=== PATIENT | female | born 1970 | race Hispanic/Latino ===

== ENCOUNTER 2019-03-22 21:36 | Inpatient (IN) | payer BC ==
[2019-03-22] MEDS ORDERED: MORPHINE 4 MG/ML SYR ONE (22:27)
[2019-03-22] MEDS ORDERED: NA CHLORIDE 0.9% 1,000 ML ONE (22:27)
[2019-03-22] MEDS ORDERED: ONDANSETRON 4 MG/2 ML VIAL ONE (22:27)
[2019-03-22] MEDS ORDERED: FAMOTIDINE 20 MG/2 ML VIAL IV ONE (22:27)
[2019-03-22 22:34] LABS: Urine Blood 2+ (NEG); Urine Glucose NEGATIVE (NEG); Urine Protein NEGATIVE (NEG); Urine pH 6.5 (5.0-7.0)
[2019-03-22 22:39] LABS: Absolute Lymphocytes (CBC) 2.5 K/uL (0.7-4.9); Basophils % 0.8 % (0-1.3); Eosinophils % 0.5 % (0-4.4); Hematocrit 40.5 % (36.0-45.0); Lymphocytes % 12.6 % (15.3-44.8); MPV 8.6 fL (7.6-11.3); RBC Red Blood Cell Count 4.78 M/uL (3.86-4.86)
[2019-03-22] MEDS ORDERED: KETOROLAC 30 MG/ML INJ ONE (22:59)
[2019-03-22 23:00] LABS: ALT/SGPT 34 U/L (12-78); AST/SGOT 28 U/L (15-37); Albumin 3.7 g/dL (3.4-5.0); Alkaline Phosphatase 88 U/L (45-117); BUN Blood Urea Nitrogen 14 mg/dL (7-18); Bicarbonate 25 mmol/L (21-32); Bilirubin Direct < 0.1 mg/dL (0-0.2); Bilirubin Total 0.1 mg/dL (0.2-1.0); Glucose Level 130 mg/dL (74-106); Lipase 127 U/L (73-393); Potassium 4.1 mmol/L (3.5-5.1); Protein, Total 7.3 g/dL (6.4-8.2); Sodium Level 137 mmol/L (136-145)
--- NOTE | 2019-03-23 00:28 | ER ---
Nurse's Notes [facility] Name: Miranda New Age: 48 yrs Sex: Female : 1970 Arrival Date: 03/22/2019 Time: 21:43 Bed 8 Private MD: Diagnosis: Cholecystitis Presentation: 03/22 22:01 Presenting complaint: Patient states: Pt reports right upper quadrant abdominal pain ea that wraps around to back. Pt reports she had an ultrasound done in July of last year in [place] and it showed calculi. Transition of care: patient was not received from another setting of care. Onset of symptoms was March 22, 2019. Risk Assessment: Do you want to hurt yourself or someone else? Patient reports no desire to harm self or others. Initial Sepsis Screen: Does the patient meet any 2 criteria? No. Patient's initial sepsis screen is negative. Does the patient have a suspected source of infection? No. Patient's initial sepsis screen is negative. Care prior to arrival: None. 22:01 Method Of Arrival: Ambulatory ea 22:01 Acuity: SHYLA 3 ea Triage Assessment: 22:07 General: Appears uncomfortable, Behavior is restless. Pain: Complains of pain in ea posterior aspect of right lateral abdomen, anterior aspect of right lateral abdomen and right upper quadrant. COO: 22:04 LMP N/A - Hysterectomy ea Historical: - Allergies: 22:07 No Known Allergies; ea - Home Meds: 22:07 lisinopril 20 mg Oral tab 1 tab once daily [Active]; ea - PMHx: 22:07 Hypertension; ea - PSHx: 22:07 Hysterectomy; ea - Immunization history:: Adult Immunizations up to date. - Social history:: Smoking status: Patient/guardian denies using tobacco. - Ebola Screening: : No symptoms or risks identified at this time. Screenin:07 Abuse screen: Denies threats or abuse. Nutritional screening: No deficits noted. ea Tuberculosis screening: No symptoms or risk factors identified. Fall Risk None identified. Assessment: 22:05 General: Appears uncomfortable, Behavior is restless. Pain: Complains of pain in right ea upper quadrant and anterior aspect of right lateral abdomen and posterior aspect of right lateral abdomen. Neuro: Level of Consciousness is awake, alert, obeys commands, Oriented to person, place, time. Cardiovascular: Patient's skin is warm and dry. Respiratory: Airway is patent Respiratory effort is even, unlabored, Respiratory pattern is regular, symmetrical. GI: Reports upper abdominal pain. Derm: Skin is pink, warm \T\ dry. 23:30 Reassessment: Patient and/or family updated on plan of care and expected duration. Pain ea level reassessed. Patient is alert, oriented x 3, equal unlabored respirations, skin warm/dry/pink. Patient states symptoms have improved. 03/23 00:50 Reassessment: Patient and/or family updated on plan of care and expected duration. Pain ea level reassessed. Patient is alert, oriented x 3, equal unlabored respirations, skin warm/dry/pink. 02:30 Reassessment: Report called to Oksana ARROYO on fourth floor. ea Vital Signs: 03/22 22:04 BP 178 / 104; Pulse 72; Resp 18; Temp 98.1; Pulse Ox 98% on R/A; Weight 69.4 kg; Height ea 5 ft. 6 in. (167.64 cm); Pain 9/10; 22:40 BP 155 / 87; Pulse 75; Resp 16; Temp 98; Pulse Ox 100% on R/A; ea 23:00 BP 143 / 84; Pulse 59; Resp 15; Pulse Ox 100% ; rv 03/23 00:00 BP 128 / 79; Pulse 68; Resp 16; Pulse Ox 96% on R/A; rv 01:01 BP 133 / 88; Pulse 70; Resp 18; Pulse Ox 99% on R/A; ea 03/22 22:04 Body Mass Index 24.69 (69.40 kg, 167.64 cm) ea ED Course: 03/22 21:43 Patient arrived in ED. es 21:44 Jasper Aj PA is PHCP. cp 21:44 Pj Horner MD is Attending Physician. cp 21:51 Navin France RN is Primary Nurse. rv 22:03 Triage completed. ea 22:04 Arm band placed on right wrist. Patient placed in an exam room, on a stretcher, on ea pulse oximetry. 22:05 Patient has correct armband on for positive identification. Bed in low position. Call ea light in reach. Side rails up X2. 22:20 Radiology exam delayed due to lab results not completed at this time. (BUN/Creatinine). vm2 22:21 Inserted saline lock: 20 gauge in right antecubital area, using aseptic technique. ea Blood collected. 22:49 Radiology exam delayed due to lab results not completed at this time. (BUN/Creatinine). vm2 23:39 CT Abd/Pelvis - IV Contrast Only In Process Unspecified. [facility] 03/23 00:27 Jaylene Giles MD is Hospitalizing Provider. cp 01:03 No provider procedures requiring assistance completed. Patient admitted, IV remains in ea place. Administered Medications: 03/22 22:25 Drug: morphine 4 mg Route: IVP; Site: right antecubital; ea 23:17 Follow up: Response: No adverse reaction; Pain is decreased ea 22:30 Drug: Pepcid 20 mg Route: IVP; Site: right antecubital; ea 23:17 Follow up: Response: No adverse reaction ea 22:32 Drug: Zofran 4 mg Route: IVP; Site: right antecubital; ea 23:17 Follow up: Response: No adverse reaction ea 22:35 Drug: NS 0.9% 1000 ml Route: IV; Rate: 1 bolus; Site: right antecubital; ea 23:18 Follow up: Response: No adverse reaction; IV Status: Completed infusion; IV Intake: ea 1000ml 22:46 Drug: TORadol 30 mg Route: IVP; Site: right antecubital; ea 23:18 Follow up: Response: No adverse reaction; Pain is decreased ea 03/23 00:29 Drug: Rocephin - (cefTRIAXone) 1 grams Route: IVPB; Infused Over: 30 mins; Site: right rv antecubital; 01:03 Follow up: Response: No adverse reaction; IV Status: Completed infusion ea Intake: 03/22 23:18 IV: 1000ml; Total: 1000ml. ea Outcome: 03/23 00:28 Decision to Hospitalize by Provider. cp 02:31 Instructed on the need for admit, Demonstrated understanding of instructions. ea 02:31 Admitted to Med/surg accompanied by tech, via stretcher, with chart, Report called to carlo Gandhi RN 02:31 Condition: stable 03:09 Patient left the ED. rv Signatures: Dispatcher [employer] [facility] Isadora Milian Corey, PA PA cp McGuire, [facility] Nola Webster RN RN ea Navin France, RN RN rv
--- NOTE | 2019-03-23 00:29 | EDPHYS ---
Physician Documentation [facility] Name: Miranda New Age: 48 yrs Sex: Female : 1970 Arrival Date: 03/22/2019 Time: 21:43 Bed 8 Private MD: ED Physician Pj Horner HPI: 03/22 22:10 This 48 yrs old Female presents to ER via Ambulatory with complaints of cp GAULBLADDER. 22:10 The patient presents with abdominal pain in the epigastric area, in the right upper cp quadrant. 22:10 Onset: The symptoms/episode began/occurred today. The symptoms radiate to right back. cp Associated signs and symptoms: Pertinent positives: nausea, Pertinent negatives: diarrhea, dysuria, fever, vomiting. The symptoms are described as constant. Severity of pain: in the emergency department the pain is unchanged despite home interventions. 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 - Social history:: Smoking status: Patient/guardian denies using tobacco. - Ebola Screening: : No symptoms or risks identified at this time. ROS: 22:30 Constitutional: Negative for body aches, chills, fever, poor PO intake. cp 22:30 Eyes: Negative for injury, pain, redness, and discharge. cp 22:30 ENT: Negative for drainage from ear(s), ear pain, sore throat, difficulty swallowing, difficulty handling secretions. 22:30 Cardiovascular: Negative for chest pain, palpitations. 22:30 Respiratory: Negative for cough, shortness of breath, wheezing. 22:30 Abdomen/GI: Positive for abdominal pain, nausea, Negative for vomiting, diarrhea, constipation, black/tarry stool, rectal bleeding. 22:30 Back: Positive for radiated pain, of the right mid back. 22:30 : Negative for urinary symptoms. 22:30 Skin: Negative for rash. 22:30 Neuro: Negative for altered mental status, headache, weakness. 22:30 All other systems are negative. Exam: 22:35 Constitutional: The patient appears in no acute distress, alert, awake, cp non-diaphoretic, non-toxic, well developed, well nourished, uncomfortable. 22:35 Head/Face: Normocephalic, atraumatic. cp 22:35 Eyes: Periorbital structures: appear normal, Conjunctiva: normal, no exudate, no injection, Sclera: no appreciated abnormality, Lids and lashes: appear normal, bilaterally. 22:35 ENT: External ear(s): are unremarkable, Nose: is normal, Mouth: Lips: moist, Oral mucosa: pink and intact, moist, Posterior pharynx: is normal, airway is patent, no erythema, no exudate. 22:35 Chest/axilla: Inspection: normal, Palpation: is normal, no crepitus, no tenderness. 22:35 Cardiovascular: Rate: normal, Rhythm: regular. 22:35 Respiratory: the patient does not display signs of respiratory distress, Respirations: normal, no use of accessory muscles, no retractions, no splinting, no tachypnea, labored breathing, is not present, Breath sounds: are clear throughout, no decreased breath sounds, no stridor, no wheezing. 22:35 Abdomen/GI: Inspection: abdomen appears normal, Bowel sounds: active, all quadrants, Palpation: soft, in all quadrants, moderate abdominal tenderness, in the epigastric area and right upper quadrant, rebound tenderness, is appreciated in the right upper quadrant, voluntary guarding, is elicited in the right upper quadrant. 22:35 Back: pain, that is moderate, of the right mid back, ROM is normal. 22:35 Skin: no rash present. Vital Signs: 22:04 BP 178 / 104; Pulse 72; Resp 18; Temp 98.1; Pulse Ox 98% on R/A; Weight 69.4 kg; Height ea 5 ft. 6 in. (167.64 cm); Pain 9/10; 22:40 BP 155 / 87; Pulse 75; Resp 16; Temp 98; Pulse Ox 100% on R/A; ea 23:00 BP 143 / 84; Pulse 59; Resp 15; Pulse Ox 100% ; rv 07 00:00 BP 128 / 79; Pulse 68; Resp 16; Pulse Ox 96% on R/A; rv 01:01 BP 133 / 88; Pulse 70; Resp 18; Pulse Ox 99% on R/A; ea 03/22 22:04 Body Mass Index 24.69 (69.40 kg, 167.64 cm) ea MDM: 03/22 21:50 Patient medically screened. cp 23:00 Differential diagnosis: cholecystitis, Cholelithiasis, non-specific abd pain, cp pancreatitis, Peptic Ulcer Disease, Perf. Duodenal Ulcer, Perf. Gastric Ulcer, Ureterolithiasis, urinary tract infection. 03/23 00:15 Data reviewed: vital signs, nurses notes, lab test result(s), radiologic studies, CT cp scan, I have discussed the patient's presentation/case with the attending Emergency Department Physician;. 00:15 Response to treatment: the patient's symptoms have markedly improved after treatment. cp 00:27 Physician consultation: Jaylene Giles MD was called at 00:27, was contacted at 00:27, regarding admission, to the medical/surgical unit. patient's condition, and will see patient in ED, shortly. 03/22 22:05 Order name: Basic Metabolic Panel; Complete Time: 23:05 03/22 23:06 Interpretation: Normal except: GLUC 130; GFR 63. 03/22 22:05 Order name: CBC with Diff; Complete Time: 23:05 03/22 23:06 Interpretation: Normal except: WBC 19.6; KRISTEN% 80.1; LYM% 12.6; NEUT A 15.7. 03/22 22:05 Order name: Creatinine for Radiology; Complete Time: 23:05 03/22 22:05 Order name: Hepatic Function; Complete Time: 23:05 03/22 23:06 Interpretation: Normal except: BILIT 0.1; GLOB 3.6; A/G 1.0. 03/22 22:05 Order name: Lipase; Complete Time: 23:05 cp 03/22 22:30 Order name: Urine Dipstick--Ancillary (enter results); Complete Time: 23:05 [facility] 03/22 22:17 Order name: CT Abd/Pelvis - IV Contrast Only 03/22 22:31 Order name: Urine --Ancillary (enter results); Complete Time: 23:05 [facility] 03/23 02:16 Order name: Comprehensive Metabolic Panel [facility] 03/23 02:16 Order name: Protime (+INR) EDTX 03/23 02:16 Order name: PTT, Activated Partial Thromb EDMS 03/23 02:17 Order name: CBC with Automated Diff EDMS 03/22 22:05 Order name: IV Saline Lock; Complete Time: 22:38 cp 03/22 22:05 Order name: Labs collected and sent; Complete Time: 22:38 cp 03/22 22:05 Order name: Urine Dipstick-Ancillary (obtain specimen); Complete Time: 22:38 cp 03/22 22:05 Order name: Urine Test (obtain specimen); Complete Time: 22:38 cp 03/23 00:14 Order name: NPO; Complete Time: 00:25 cp 03/23 02:16 Order name: CONS Pharmacy Consult EDMS 03/23 02:16 Order name: CONS Physician Consult EDTX 03/23 02:16 Order name: NPO EDMS Administered Medications: 03/22 22:25 Drug: morphine 4 mg Route: IVP; Site: right antecubital; ea 23:17 Follow up: Response: No adverse reaction; Pain is decreased ea 22:30 Drug: Pepcid 20 mg Route: IVP; Site: right antecubital; ea 23:17 Follow up: Response: No adverse reaction ea 22:32 Drug: Zofran 4 mg Route: IVP; Site: right antecubital; ea 23:17 Follow up: Response: No adverse reaction ea 22:35 Drug: NS 0.9% 1000 ml Route: IV; Rate: 1 bolus; Site: right antecubital; ea 23:18 Follow up: Response: No adverse reaction; IV Status: Completed infusion; IV Intake: ea 1000ml 22:46 Drug: TORadol 30 mg Route: IVP; Site: right antecubital; ea 23:18 Follow up: Response: No adverse reaction; Pain is decreased ea 03/23 00:29 Drug: Rocephin - (cefTRIAXone) 1 grams Route: IVPB; Infused Over: 30 mins; Site: right rv antecubital; 01:03 Follow up: Response: No adverse reaction; IV Status: Completed infusion ea Disposition: 03/23/19 00:28 Hospitalization ordered by Jaylene Giles for Observation. Preliminary diagnosis is Cholecystitis. - Bed requested for Telemetry/MedSurg (observation). - Status is Observation. rv - Condition is Stable. - Problem is new. - Symptoms have improved. UTI on Admission? No Addendum: 03/26/2019 20:00 Co-signature as Attending Physician, Pj Horner MD. g s Signatures: Dispatcher [employer] EDMS Jasper Aj PA PA cp Lydia Dempsey, RN RN cg Nola Webster, RN RN Pj Mc MD MD gs Vicente, Ronaldo, CRUZ RN rv Corrections: (The following items were deleted from the chart) 03/22 23:06 23:06 Normal except: WBC 19.6. cp cp 03/23 02:22 00:28 Hospitalization Ordered by Jaylene Giles MD for Observation. Preliminary cg diagnosis is Cholecystitis. Bed requested for Telemetry/MedSurg (observation). Status is Observation. Condition is Stable. Problem is new. Symptoms have improved. UTI on Admission? No. cp 03:09 02:22 03/23/2019 00:28 Hospitalization Ordered by Jaylene Giles MD for Observation. rv Preliminary diagnosis is Cholecystitis. Bed requested for Telemetry/MedSurg (observation). Status is Observation. Condition is Stable. Problem is new. Symptoms have improved. UTI on Admission? No. cg
[2019-03-23] MEDS ORDERED: CEFTRIAXONE/SWI 1gm 1 GM/10 ML SYR ONE (00:41)
[2019-03-23] MEDS ORDERED: MORPHINE 2 MG/ML SYR IV PRN (02:09)
[2019-03-23] MEDS ORDERED: ONDANSETRON 4 MG/2 ML VIAL IV PRN (02:09)
[2019-03-23] MEDS: NA CHLORIDE 0.9% 1,000 ML IV SCH ×4 (03:33→23:00)
[2019-03-23 06:32] LABS: Absolute Lymphocytes (CBC) 2.4 K/uL (0.7-4.9); Basophils % 0.5 % (0-1.3); Eosinophils % 0.7 % (0-4.4); Hematocrit 38.2 % (36.0-45.0); Lymphocytes % 14.6 % (15.3-44.8); MPV 8.3 fL (7.6-11.3); Monocytes % 11.7 % (3.3-12.3); RBC Red Blood Cell Count 4.49 M/uL (3.86-4.86)
[2019-03-23 06:34] LABS: Protime INR 0.96
[2019-03-23 06:44] LABS: Albumin 3.1 g/dL (3.4-5.0); Bilirubin Total 0.4 mg/dL (0.2-1.0); Potassium 3.8 mmol/L (3.5-5.1); Protein, Total 6.4 g/dL (6.4-8.2)
--- NOTE | 2019-03-23 09:03 | P.HP ---
Date of Service: 03/23/19 [id number]
--- NOTE | 2019-03-23 09:15 | P.PN ---
Subjective Date of Service: 03/23/19 Primary Care Provider: [place], [place] Chief Complaint: Abdominal pain Subjective: Other (Patient much improved. Patient without nausea, vomiting and abdominal pain.) Physical Examination - Vital Signs Temperature: 97.3 F Blood Pressure: 147/81 Pulse: 62 Respirations: 18 Pulse Ox (%): 99 - Physical Exam General: Alert, In no apparent distress, Oriented x3, Cooperative HEENT: Atraumatic Neck: Supple Respiratory: Clear to auscultation bilaterally, Normal air movement Cardiovascular: Normal pulses, Regular rate/rhythm Gastrointestinal: Normal bowel sounds, Soft and benign, Non-distended, No tenderness, No masses, No rebound, No guarding Musculoskeletal: No erythema, No tenderness, No warmth Integumentary: No tenderness/swelling, No erythema, No warmth, No cyanosis Neurological: Normal speech, Normal strength at 5/5 x4 extr, Normal tone, Normal affect - Studies Laboratory Data (last 24 hrs) 03/22/19 22:30: Creatinine 0.93 03/22/19 22:30: WBC 19.6 H, Hgb 13.4, Hct 40.5, Plt Count 348 03/22/19 22:30: Sodium 137, Potassium 4.1, BUN 14, Creatinine 0.95, Glucose 130 H, Total Bilirubin 0.1 L, AST 28, ALT 34, Alkaline Phosphatase 88, Lipase 127 Medications List Reviewed: Yes Assessment & Plan Discharge Plan: Home Plan to discharge in: 24 Hours Physician Review Additional Text: Impression: Nausea, vomiting and right upper quadrant abdominal pain secondary to acute cholecystitis with cholelithiasis Hypertension Patient is Muslim Plan: Nausea, vomiting and right upper quadrant abdominal pain secondary to acute cholecystitis with cholelithiasis: Patient has improved. Patient without nausea, vomiting or abdominal pain. Surgery has evaluated patient. Surgery has given options to patient including surgery versus trial on diet with eventual outpatient surgery. Patient is from [facility]. She prefers to do a trial of diet at this time. If she tolerates her diet, then the patient can be discharged home with antibiotics. Patient plans to return to [facility] this coming Tuesday. Patient will need close follow up and surgical evaluation as an outpatient to consider cholecystectomy in [place]. Will continue to reassess. Possible discharge as early as today. Hypertension: Will continue with her blood pressure medication. Patient is Muslim: This was considered concerning surgical needs Time Spent Managing Pts Care (In Minutes): 55
--- NOTE | 2019-03-23 09:23 | RAD REPORT ---
EXAM DESCRIPTION: CT - Abdomen Pelvis W Contrast - 03/23/2019 12:06 am CLINICAL HISTORY: 48 years Female right upper abdomen pain COMPARISON: None TECHNIQUE: Images were obtained in axial, sagittal, and coronal planes. Intravenous contrast was adm inistered. This exam was performed according to our departmental dose-optimization program which includes use of Automated Exposure Control, adjustment of the mA and/or kV according to patient size and/or use of i terative reconstruction technique. FINDINGS: Marked gallbladder distention with multiple calcified gallstones seen. No definite gallbla dder wall thickening or fluid adjacent to gallbladder. No abnormality involving the liver, spleen, pa ncreas, or adrenal glands bilaterally. No dilatation common bile duct. No obstructing renal calcifications bilaterally. Mild bilateral hydronephrosis right greater than lef t. Unremarkable bladder. 6.9 x 6.7 cm septated cyst anterior mid right kidney. The finding would be c ategorized as Bosniak II. No mural nodularity or enhancement. Appendix within normal limits. No bowel obstruction, perforation, or inflammation. Moderate constipat ion. Calcification abdominal aorta with no dilatation seen. No adenopathy or abnormal fluid collections se en. No abnormality lower lungs bilaterally. No acute osseous abnormality. IMPRESSION: Markedly distended gallbladder with multiple calcified gallstones. 6.9 cm septated cyst anterior mid right kidney likely benign. No further follow-up needed. Electronically signed by: Emeli Dey MD 03/22/2019 11:54 PM CDT Due to temporary technical issues with the PACS/Fluency reporting system, reports are being signed by the in house radiologist as a courtesy to ensure prompt reporting. The interpreting radiologist is f ully responsible for the content of the report.
[2019-03-23] MEDS: LISINOPRIL 20 MG TAB PO SCH (09:26)
--- NOTE | 2019-03-23 09:31 | HP ---
Date of Admission: 03/23/2019 Reason For Admission: 1.Abdominal pain. 2.Acute cholecystitis. History Of Present Illness: This is a 48-year-old female who presented to the emergency room with ab dominal pain and intractable nausea and vomiting. She was worked up and found to have gallbladder wa ll distention. She was diagnosed with cholelithiasis a few months ago. Since that time, she had bee n doing well. However, today, her symptoms got much worse. She came into the ER for evaluation. He r initial workup revealed cholelithiasis with some mild hydronephrosis. There was no obstructive uro hosea noted. There was gallstones noted that were calcified. Her gallbladder wall was distended. D ecision was made to admit her to the hospital. She has no medical problems except for hypertension. In the ER, she was found to have a leukocytosis and fever. She will be admitted to the hospital for acute cholecystitis. Her blood pressure is controlled. She is low risk for any medical/cardiopulmo nary complications. Review of Systems: A 10-point review of systems is otherwise unremarkable. Past Medical History: Hypertension. Past Surgical History: Hysterectomy. Allergies: NO KNOWN DRUG ALLERGIES. Medications: Home medications have been reviewed. Family History: Noncontributory. Social History: She does not smoke or drink or do any drugs. Physical Examination: Vital Signs: Initial vitals revealed a temp of 98.6, heart rate was 80, respiration rate 18, blood p ressure 140/70, saturating 99% on room air. Pain is 10/10. General: The patient is lying in bed, comfortable, no distress. Awake, alert, oriented to person, p lace, and time. HEENT: Normocephalic, atraumatic. Pupils are equal and reactive to light. Extraocular muscles inta ct. There is no JVP. No bruits. Oropharynx pink, moist. No lymphadenopathy. No thyromegaly. TMs normal. Cardiovascular: Regular rate and rhythm. No murmur, rubs, or gallops. Lungs: Clear bilaterally. Abdomen: Soft. Tender in the epigastric region. Bowel sounds diminished. Extremities: No clubbing, no cyanosis, no edema. Neurologic: Cranial nerves 2 through 12 intact. Motor is 5/5. Sensation intact to light touch. Skin: No deformities. Laboratory Data: Labs have been reviewed. Assessment: Home Medications: 1.The patient with cholelithiasis with acute cholecystitis. 2.Hydronephrosis, mild. 3.Hypertension. Plan: At this time is to go ahead and get surgical consultation. The family is from out of town. S he has had a history of cholelithiasis. She has done well with managing her diet. However, it does look like she may have some gallbladder wall distention. There is no evidence of Ceasar inflammation o f the gallbladder wall, however. The patient does have some mild hydronephrosis, but there is no joselo dence of an obstructive uropathy. Clinically, the patient is improving. Her labs are within normal limits. We will have Surgery assess her and will discuss with the patient regarding long-term plan. The patient with a leukocytosis and will continue with IV antibiotics. GI and DVT prophylaxis. THELMA Voice ID: [id number]
[2019-03-23] MEDS: TRAMADOL HCL 50 MG TAB PO PRN ×2 (11:14→22:19)
[2019-03-23] MEDS: CEFOXITIN/SWI 1gm 1 GM/10 ML SYR IV SCH ×3 (11:54→23:50)
[2019-03-23] MEDS ORDERED: CEFOXITIN SODIUM 1 GM/VIAL IVPB SCH (12:00)
--- NOTE | 2019-03-23 13:13 | P.DS ---
Admission Date: 03/23/19 Discharge Date: 03/23/19 Primary Care Provider: [place], [place] Disposition: ROUTINE DISCHARGE Discharge Condition: GOOD Reason for Admission: Abdominal pain Consultations: Surgery-Dr. Cottrell Procedures: CT Ab: FINDINGS: Marked gallbladder distention with multiple calcified gallstones seen. No definite gallbladder wall thickening or fluid adjacent to gallbladder. No abnormality involving the liver, spleen, pancreas, or adrenal glands bilaterally. No dilatation common bile duct. No obstructing renal calcifications bilaterally. Mild bilateral hydronephrosis right greater than left. Unremarkable bladder. 6.9 x 6.7 cm septated cyst anterior mid right kidney. The finding would be categorized as Bosniak II. No mural nodularity or enhancement. Appendix within normal limits. No bowel obstruction, perforation, or inflammation. Moderate constipation. Calcification abdominal aorta with no dilatation seen. No adenopathy or abnormal fluid collections seen. No abnormality lower lungs bilaterally. No acute osseous abnormality. IMPRESSION: Markedly distended gallbladder with multiple calcified gallstones. 6.9 cm septated cyst anterior mid right kidney likely benign. No further follow- up needed. Medical Problem List: Nausea, vomiting and right upper quadrant abdominal pain secondary to acute on chronic cholecystitis with cholelithiasis Hypertension 6.9 cm septated cyst to the anterior middle right kidney likely benign Brief History of Present Illness: 48-year-old female presented to the emergency room with abdominal pain , nausea and vomiting. Patient with history of cholelithiasis diagnosed a few months ago. She had been treating this as an outpatient with diet. Patient evaluated in the emergency room found to have acute cholecystitis with cholelithiasis. Patient with elevated white count. Patient was admitted for further evaluation. Hospital Course: Patient presented with nausea, vomiting and right upper quadrant abdominal pain. Patient with history of cholelithiasis. Patient is from [place]. She is visiting in the area. Patient evaluated in the emergency room. She was found to have acute on chronic cholecystitis with cholelithiasis. Patient was given IV antibiotic therapy with improvement. Surgery evaluated patient. Surgery provided options for the patient since she is on vacation and from [place]. Options were surgical intervention here or if she tolerated her diet then she could be released and follow up with her PCP and surgery in [place]. The patient opted for diet and follow up in [place]. At discharge she is without any significant abdominal pain, nausea and vomiting. Patient has tolerated a full liquid diet. Patient ambulating well. White count has improved. At discharge she will continue with a full liquid diet and advance to a GI soft. Patient will continue with Cipro 500 mg twice daily and Flagyl 500 mg 3 times a day for 7 days. Patient plans to go back to [place] on Tuesday. Recommend follow up with PCP and surgery early next week to further address. If with increasing pain she is to go to the ER for further evaluation. Recommend ibuprofen or Tylenol as needed for pain at this time. Patient with underlying hypertension. She may continue with lisinopril 20 mg daily. She can follow up with her PCP to further address. CT scan also revealed a 6.9 cm septated cyst to the anterior middle right kidney. This appears benign. This can be further monitored as an outpatient. Vital Signs/Physical Exam: Temp Pulse Resp BP Pulse Ox 98.0 F 80 17 149/92 H 97 03/23/19 12:00 03/23/19 12:00 03/23/19 12:00 03/23/19 12:00 03/23/19 12:00 General: Alert, In no apparent distress, Oriented x3, Cooperative HEENT: Atraumatic Neck: Supple Respiratory: Clear to auscultation bilaterally, Normal air movement Cardiovascular: Normal pulses, Regular rate/rhythm Gastrointestinal: Normal bowel sounds, Soft and benign, Non-distended, No tenderness, No masses, No rebound, No guarding Musculoskeletal: No erythema, No tenderness, No warmth Integumentary: No tenderness/swelling, No erythema, No warmth, No cyanosis Neurological: Normal speech, Normal strength at 5/5 x4 extr, Normal tone, Normal affect Laboratory Data at Discharge: WBC 16.2 K/uL (4.3-10.9) H D 03/23/19 06:16 Hgb 12.9 g/dL (12.0-15.0) 03/23/19 06:16 Hct 38.2 % (36.0-45.0) 03/23/19 06:16 Plt Count 279 K/uL (152-406) 03/23/19 06:16 PT 11.4 SECONDS (9.5-12.5) 03/23/19 06:16 INR 0.96 03/23/19 06:16 APTT 26.8 SECONDS (24.3-36.9) 03/23/19 06:16 Sodium 141 mmol/L (136-145) 03/23/19 06:16 Potassium 3.8 mmol/L (3.5-5.1) 03/23/19 06:16 BUN 12 mg/dL (7-18) 03/23/19 06:16 Creatinine 0.82 mg/dL (0.55-1.3) 03/23/19 06:16 Glucose 98 mg/dL (74-106) 03/23/19 06:16 Total Bilirubin 0.4 mg/dL (0.2-1.0) 03/23/19 06:16 AST 38 U/L (15-37) H 03/23/19 06:16 ALT 45 U/L (12-78) 03/23/19 06:16 Alkaline Phosphatase 71 U/L (45-117) 03/23/19 06:16 Lipase 127 U/L (73-393) 03/22/19 22:30 Home Medications: Ciprofloxacin HCl [Cipro 500 MG Tablet] 500 mg PO BID #14 tab 03/23/19 RX: Lisinopril [Prinivil*] 20 mg PO DAILY 03/23/19 metroNIDAZOLE [Flagyl] 500 mg PO Q8H #21 tablet 03/23/19 New Medications: Ciprofloxacin HCl [Cipro 500 MG Tablet] 500 mg PO BID #14 tab metroNIDAZOLE [Flagyl] 500 mg PO Q8H #21 tablet Patient Discharge Instructions: 1. Patient plans to follow up in [place] where she is from. 2. Patient presented with nausea, vomiting and right upper quadrant abdominal pain. Patient with history of cholelithiasis. Patient is from [place]. She is visiting in the area. Patient evaluated in the emergency room. She was found to have acute on chronic cholecystitis with cholelithiasis. Patient was given IV antibiotic therapy with improvement. Surgery evaluated patient. Surgery provided options for the patient since she is on vacation and from [place]. Options were surgical intervention here or if she tolerated her diet then she could be released and follow up with her PCP and surgery in [place]. The patient opted for diet and follow up in [place]. At discharge she is without any significant abdominal pain, nausea and vomiting. Patient has tolerated a full liquid diet. Patient ambulating well. White count has improved. At discharge she will continue with a full liquid diet and advance to a GI soft. Patient will continue with Cipro 500 mg twice daily and Flagyl 500 mg 3 times a day for 7 days. Patient plans to go back to [place] on Tuesday. Recommend follow up with PCP and surgery early next week to further address. If with increasing pain she is to go to the ER for further evaluation. Recommend ibuprofen or Tylenol as needed for pain at this time. 3. Patient with underlying hypertension. She may continue with lisinopril 20 mg daily. She can follow up with her PCP to further address. 4. CT scan also revealed a 6.9 cm septated cyst to the anterior middle right kidney. This appears benign. This can be further monitored as an outpatient. Diet: Full liquid advanced to GI soft Activity: Ad hoam Time spent managing pt's care (in minutes): 55
[2019-03-23] MEDS: HYDROCODONE/APAP 7.5/325 MG TAB PO PRN ×2 (15:01→23:26)
--- NOTE | 2019-03-23 19:04 | CON ---
Date of Consultation: 03/23/2019 Diagnosis: Acute cholecystitis, symptomatic cholelithiasis. History Of Present Illness: This is the case of a 48-year-old patient, comes to us with abdominal pa in. The pain started last night, she was eating some real chicken, fried food, then after that ate s ome salmon then she has abdominal pain, bloating, nausea. Diagnosed with acute cholecystitis, sympto matic cholelithiasis and a surgical consult was obtained. She stated that she is originally from [place], [place]. She is here just visiting. She is about to leave in the next few hours back to [place]. She feels better today compared with last night. No dysuria, hematuria, hematochezia, or melena. N o recent traveling out of the country. No family member sick at home. Past Medical History: Hypertension. Past Surgical History: Hysterectomy. Allergies: NONE. Medications: None. Family History: Noncontributory. Social History: She does not smoke. She does not drink alcohol. Review of Systems: Ten points otherwise unremarkable. Physical Examination: General: The patient is awake and alert. HEENT: Pupils are equal and reactive, anicteric. Neck: Supple. Chest: Clear. Heart: S1 and S2. Abdomen: Right upper quadrant mild tenderness. No Lozoya sign. No guarding or rebound. Pelvic: Deferred. Rectal: Deferred. Extremities: Good capillary refill. Laboratory Data: Blood work shows a WBC count of 19.6 with hemoglobin of 13.4 and platelets of 348. Potassium 4.1. Creatinine is 0.95. INR is 0.96. CAT scan of the abdomen and pelvis interpreted by Dr. Cates as a distended gallbladder with multiple calcified gallstones and also she has a right k idney cyst. Assessment: This is a 48-year-old patient with acute cholecystitis, symptomatic cholelithiasis. She was offered laparoscopic possible open cholecystectomy with benefits, alternatives, and risks includ ing, but not limited to infection, bleeding, damage to adjacent structures as complication, choledoch olithiasis, bile leak, pancreatitis, IA, and even . She also understands this may not relieve t he symptoms. She might need more than one surgical intervention. She asked for a trial of diet firs t. Since she lives in [place], she is about to leave in that area and she feels better with no pain an d this morning she went to try a full liquid diet and possible discharge home with antibiotics and pee shrestha promised when she gets to [place] she is going to follow up on this and keep a diet in a low-fat unti l she can find her primary doctor in the next few days when she goes back there. I discussed the becca e with Dr. Canseco, the primary doctors sounds fair enough. If she gets sick, then she will have no c hoice than to proceed with laparoscopic cholecystectomy in the state. The patient understand the imp ortance of no forgetting about this and look for medical attention in [place] as soon as she gets there . OLEG/SEBASTIAN Voice ID: [id number] Report ID: [id number]
[2019-03-24] MEDS: NA CHLORIDE 0.9% 1,000 ML IV SCH ×2 (04:40→08:35)
[2019-03-24 05:41] LABS: Absolute Lymphocytes (CBC) 3.3 K/uL (0.7-4.9); Basophils % 0.8 % (0-1.3); Eosinophils % 0.9 % (0-4.4); Hematocrit 40.1 % (36.0-45.0); Lymphocytes % 24.8 % (15.3-44.8); MPV 8.6 fL (7.6-11.3); Monocytes % 8.5 % (3.3-12.3)
[2019-03-24 06:23] LABS: Albumin 3.3 g/dL (3.4-5.0); Bilirubin Total 3.7 mg/dL (0.2-1.0); Potassium 3.8 mmol/L (3.5-5.1); Protein, Total 6.9 g/dL (6.4-8.2)
[2019-03-24] MEDS: CEFOXITIN/SWI 1gm 1 GM/10 ML SYR IV SCH (06:37)
[2019-03-24] MEDS: LISINOPRIL 20 MG TAB PO SCH (08:29)
--- NOTE | 2019-03-24 09:01 | P.PN ---
Subjective Date of Service: 03/24/19 Primary Care Provider: [place], [place] Chief Complaint: Abdominal pain Subjective: Other (Discharge was held yesterday due to increased nausea. This morning no significant abdominal pain noted some nausea. LFTs now elevated including total bilirubin and lipase.) Physical Examination - Vital Signs Temperature: 98.3 F Blood Pressure: 140/74 Pulse: 63 Respirations: 18 Pulse Ox (%): 96 - Physical Exam General: Alert, In no apparent distress, Oriented x3, Cooperative HEENT: Atraumatic Neck: Supple Respiratory: Clear to auscultation bilaterally, Normal air movement Cardiovascular: Normal pulses, Regular rate/rhythm Gastrointestinal: Normal bowel sounds, Soft and benign, Non-distended, No tenderness, No masses, No rebound, No guarding Musculoskeletal: No erythema, No tenderness, No warmth Integumentary: No erythema, No warmth, No cyanosis Neurological: Normal speech, Normal strength at 5/5 x4 extr, Normal tone, Normal affect - Studies Medications List Reviewed: Yes Assessment & Plan Discharge Plan: Home Plan to discharge in: Greater than 2 days Physician Review Additional Text: Impression: Nausea, vomiting and right upper quadrant abdominal pain secondary to acute cholecystitis with cholelithiasis now with elevated LFTs and lipase Hypertension Patient is [employer] Plan: Nausea, vomiting and right upper quadrant abdominal pain secondary to acute cholecystitis with cholelithiasis now with elevated LFTs and lipase: Discharge was held yesterday due to increased nausea. Patient now with elevated LFT and lipase. Will order MRCP stat and abdominal ultrasound to further evaluate. Case discussed with surgery. Will keep the patient NPO at this time. Await MRCP/abdominal ultrasound finding. Patient may require transfer to higher level care center for a GI evaluation-ERCP if MRCP abnormal. If MRCP negative then patient may require surgical intervention here. Patient still desires to go back to [place]. She is to return to [place] by air tomorrow. Will continue to reassess. Await findings and recommendation by surgery. Hypertension: Will continue with her blood pressure medication. Time Spent Managing Pts Care (In Minutes): 55
--- NOTE | 2019-03-24 09:56 | P.PN ---
Subjective Date of Service: 03/24/19 Primary Care Provider: [place], [place] Chief Complaint: Abdominal pain Patient feels slightly better than yesterday with respect to pain, continues to have nausea Physical Examination - Vital Signs Temperature: 98.3 F Blood Pressure: 140/74 Pulse: 63 Respirations: 18 Pulse Ox (%): 96 - Physical Exam General: Alert, In no apparent distress, Cooperative Gastrointestinal: Other (soft, mild epigastric and RUQ TTP, ND, negative murphys ) - Studies Medications List Reviewed: Yes Assessment And Plan - Current Problems (Diagnosis) (1) Gallstone pancreatitis Current Visit: Yes Status: Acute Plan: - Patient has increase in liver enzymes as well as lipase concerning for gallstone pancreatitis given her clinical picture - I recommnend GI consultation with ERCP followed by laparoscopic cholecystectomy, if GI unavailable, will need transfer to have GI evaluation - continue NPO Physician Review Additional Text: Impression: Nausea, vomiting and right upper quadrant abdominal pain secondary to acute cholecystitis with cholelithiasis now with elevated LFTs and lipase Hypertension Patient is Buddhist Plan: Nausea, vomiting and right upper quadrant abdominal pain secondary to acute cholecystitis with cholelithiasis now with elevated LFTs and lipase: Discharge was held yesterday due to increased nausea. Patient now with elevated LFT and lipase. Will order MRCP stat and abdominal ultrasound to further evaluate. Case discussed with surgery. Will keep the patient NPO at this time. Await MRCP/abdominal ultrasound finding. Patient may require transfer to higher level care center for a GI evaluation-ERCP if MRCP abnormal. If MRCP negative then patient may require surgical intervention here. Patient still desires to go back to [place]. She is to return to [place] by air tomorrow. Will continue to reassess. Await findings and recommendation by surgery. Hypertension: Will continue with her blood pressure medication.
[2019-03-24] MEDS ORDERED: PIPER/TAZO/NS 3.375gm 3.375 GM/100 ML BAG IVPB SCH (10:00)
--- NOTE | 2019-03-24 11:29 | P.DS ---
Admission Date: 03/23/19 Discharge Date: 03/24/19 Primary Care Provider: [place], [place] Disposition: ROUTINE DISCHARGE Discharge Condition: GOOD Reason for Admission: Abdominal pain Consultations: Surgery: Dr. Chicas Procedures: Medical problem list: Nausea, vomiting and abdominal pain secondary to gallstone pancreatitis with history of acute on chronic cholecystitis with cholelithiasis Hypertension 6.9 cm septated cyst to the anterior middle right kidney, this appears benign Brief History of Present Illness: 48-year-old female presented to the emergency room with abdominal pain , nausea and vomiting. Patient with history of cholelithiasis diagnosed a few months ago. She had been treating this as an outpatient with diet. Patient evaluated in the emergency room found to have acute cholecystitis with cholelithiasis. Patient with elevated white count. Patient was admitted for further evaluation. Hospital Course: Patient presented with nausea, vomiting and right upper quadrant abdominal pain. Patient with history of cholelithiasis. Patient is from [place]. She is visiting in the area. Patient evaluated in the emergency room. She was found to have acute on chronic cholecystitis with cholelithiasis. Patient was given IV antibiotic therapy and fluids with improvement. Surgery evaluated patient. Surgery provided options for the patient since she is on vacation and from [place]. Options were surgical intervention here or if she tolerated her diet then she could be released and follow up with her PCP and surgery in [place]. The patient opted for diet and follow up in [place]. Patient was given a clear liquid then full liquid diet. She continued to have nausea. Repeat blood work shows worsening elevation in LFTs and lipase. LFTs in the range of 300-400. Lipase which was normal now above 11,000. Patient with gallstone pancreatitis. Case discussed with surgery. Surgery recommends transfer to higher level care center for GI evaluation with ERCP and eventual cholecystectomy. We do not have GI on-call. Patient agrees with transfer. Case discussed with hospitalist and GI physician at [facility]. They agree with plan of care and transfer. Patient to remain NPO for GI intervention. Patient on IV fluids and IV Zosyn. Patient clinically stable for transfer. Patient with underlying hypertension. Patient takes lisinopril 20 mg daily. This can be continued after surgery. CT scan also revealed a 6.9 cm septated cyst to the anterior middle right kidney. This appears benign. This can be further monitored as an outpatient. Vital Signs/Physical Exam: Temp Pulse Resp BP Pulse Ox 98.3 F 63 18 140/74 96 03/24/19 09:56 03/24/19 09:56 03/24/19 09:56 03/24/19 09:56 03/24/19 09:56 General: Alert, In no apparent distress, Oriented x3, Cooperative HEENT: Atraumatic Neck: Supple Respiratory: Clear to auscultation bilaterally, Normal air movement Cardiovascular: Normal pulses, Regular rate/rhythm Gastrointestinal: Normal bowel sounds, Soft and benign, Non-distended, No masses , No rebound, No guarding, Tenderness (Mild pain to the epigastric region) Laboratory Data at Discharge: WBC 13.4 K/uL (4.3-10.9) H D 03/24/19 05:27 Hgb 13.5 g/dL (12.0-15.0) 03/24/19 05:27 Hct 40.1 % (36.0-45.0) 03/24/19 05:27 Plt Count 373 K/uL (152-406) D 03/24/19 05:27 PT 11.4 SECONDS (9.5-12.5) 03/23/19 06:16 INR 0.96 03/23/19 06:16 APTT 26.8 SECONDS (24.3-36.9) 03/23/19 06:16 Sodium 138 mmol/L (136-145) 03/24/19 05:27 Potassium 3.8 mmol/L (3.5-5.1) 03/24/19 05:27 BUN 7 mg/dL (7-18) 03/24/19 05:27 Creatinine 0.91 mg/dL (0.55-1.3) 03/24/19 05:27 Glucose 112 mg/dL (74-106) H 03/24/19 05:27 Total Bilirubin 3.7 mg/dL (0.2-1.0) H 03/24/19 05:27 AST 314 U/L (15-37) H* D 03/24/19 05:27 ALT 402 U/L (12-78) H* D 03/24/19 05:27 Alkaline Phosphatase 185 U/L (45-117) H D 03/24/19 05:27 Lipase 90390 U/L (73-393) H 03/24/19 05:27 Home Medications: Lisinopril [Prinivil*] 20 mg PO DAILY 03/23/19 Patient Discharge Instructions: 1. Patient to be transferred to [facility] due to gallstone pancreatitis. Case discussed with accepting hospitalist and GI physician. Patient will require a ERCP and cholecystectomy. 2. Patient NPO at this time. Continue with IV fluids and IV Zosyn. Diet: NPO Activity: Ad homa Time spent managing pt's care (in minutes): 55
--- NOTE | 2019-03-24 12:32 | RAD REPORT ---
EXAM DESCRIPTION: US - Abdomen Exam Complete - 03/24/2019 11:41 am CLINICAL HISTORY: Abdominal pain. cholecystitis w elevated LFT COMPARISON: No comparisons FINDINGS: The liver is normal in size, shape and echotexture. No focal liver lesions or intrahepatic biliary dilatation is seen. Multiple gallbladder calculi seen. Several of the calculi appeared to be within the neck of the gallb ladder. Gallbladder wall appears thickened in somewhat irregular. Common bile duct is normal in calib er measuring 4 mm. Both kidneys are normal in size, shape and echotexture. No hydronephrosis. Large septated cystic lesi on is present involving the right kidney measuring 6.3 x 8.5 x 7.1 cm. Several the septa appear somew hat thickened. The spleen is normal in size measuring 9 cm. The pancreas and aorta are obscured by bowel gas. The visualized aspects of the IVC are grossly normal. IMPRESSION: Cholelithiasis with several gallbladder stones noted near the neck of the gallbladder. G allbladder wall thickening is seen suggesting acute cholecystitis. No evidence of common duct dilatat ion or intrahepatic dilatation. Large 8 x 7 cm multi-septated cystic mass involving the right kidney. Several the septa appear mildly thickened. Recommend CT or MR renal protocol with contrast further assess this lesion.
--- NOTE | 2019-03-24 12:33 | RAD REPORT ---
EXAM DESCRIPTION: MRI - Cholangiogram - 03/24/2019 10:43 am CLINICAL HISTORY: cholecystitis with elevated lft COMPARISON: No comparisons FINDINGS: Three-dimensional MRCP was performed using maximum intensity projection reconstruction on the same work station. No intrahepatic biliary tree dilatation is seen. The common bile duct is normal caliber without evide nce of retained stone, stricture or mass. The pancreatic duct is not pathologically dilated. Cholelithiasis is noted with mild gallbladder wall thickening seen. Early acute cholecystitis cannot be ruled out. Several of the stones extend into the gallbladder neck and likely in the cystic duct. Limited T2 sequences through the abdomen demonstrates no bulky adenopathy, significant free fluid or abscess. Large complex multiloculated right renal cystic lesions seen, incompletely assessed. IMPRESSION: Cholelithiasis is seen with mild wall thickening of the gallbladder, most compatible wit h acute cholecystitis. Small stones are seen within the cystic duct and gallbladder neck. No intrahep atic biliary dilatation or common bile duct dilatation. No finding to indicate choledocholithiasis. Multiloculated complex right renal cystic lesion, incompletely assessed.
== END 2019-03-24 13:14 | disposition short-term general hospital (02) | DRG 439 ==
LOC: ER 21:36 → 4TH 03-23 02:32
PROVIDERS: ADMIT Hospitalist; ATTEND Hospitalist
DX: K85.10 Biliary acute pancreatitis without necrosis or infection (principal); K80.12 Calculus of gallbladder with acute and chronic cholecystitis without obstruction; I10 Essential (primary) hypertension; N28.1 Cyst of kidney, acquired
CPT/HCPCS: 36415; 74177; 74181; 76700; 80048; 80053; 80076; 81003; 81025; 83690; 85025; 85610; 85730; 96361; 96365; 96375; 99285; J0696; J2405; J2543; J7030; Q9967